=== PATIENT | male | born 1945 | race Caucasian/White ===

== ENCOUNTER 2016-11-10 14:19 | Outpatient (CLI) | payer MEDICARE, OTHER ==
--- NOTE | 2016-11-11 10:35 | XRAY Report ---
THREE-VIEW RIGHT FOOT: 11/10/2016 CLINICAL INDICATION: Sprain, pain. FINDINGS: AP, lateral, oblique views of the right foot demonstrate osteoarthritic changes of the 1st metatarsophalangeal joint and interphalangeal joints. There is no evidence of acute fracture or dis location. No radiopaque foreign body is seen in the soft tissues. IMPRESSION: OSTEOARTHRITIS. JOB #: [id number] EXT JOB #:[id number]
== END 2016-11-10 14:20 | disposition home or self-care (01) ==
LOC: DI.N 14:19
PROVIDERS: ATTEND Internal Medicine
DX: S93.509A Unspecified sprain of unspecified toe(s), initial encounter (principal); M19.071 Primary osteoarthritis, right ankle and foot

== ENCOUNTER 2016-12-08 09:24 | Outpatient (CLI) | payer MEDICARE, OTHER ==
--- NOTE | 2016-12-08 13:48 | XRAY Report ---
THREE-VIEW RIGHT FOOT: 12/08/2016 CLINICAL INDICATION: Persistent pain. FINDINGS: AP, lateral, oblique views of the right foot are compared to previous films of 11/10/2016. Better seen on today's oblique view is a fracture of the proximal phalanx of the 5th toe, minimally displaced, with some callus formation on the current examination. Osteoarthritic changes are stable . No radiopaque foreign body is seen in the soft tissues. IMPRESSION: HEALING FRACTURE AT THE PROXIMAL PHALANX OF THE 5TH TOE, BETTER SEEN ON TODAY'S OBLIQUE PROJECTION. JOB #: [id number] EXT JOB #:[id number]
== END 2016-12-08 09:25 | disposition home or self-care (01) ==
LOC: DI 09:24
PROVIDERS: ATTEND Podiatrist
DX: S92.511D Displaced fracture of proximal phalanx of right lesser toe(s), subsequent encounter for fracture with routine healing (principal)

== ENCOUNTER 2017-05-11 09:32 | Outpatient (CLI) | payer MEDICARE, OTHER ==
--- NOTE | 2017-05-12 19:06 | XRAY Report ---
DATE OF SERVICE: 05/11/2017 THREE VIEW LEFT FOOT: 05/11/2017 CLINICAL INDICATION: Pain at the sesamoid bones. FINDINGS: AP, lateral, oblique views of the left foot demonstrate no evidence of acute fracture or dislocation. The joint spaces are preserved. The medial of the two sesamoids at the first metatarsophalangeal joint is bipartite. IMPRESSION: No evidence of acute fracture. Bipartite medial sesamoid bone at the first metatarsopha langeal joint. TD: 05/11/2017 20:17
== END 2017-05-11 09:33 | disposition home or self-care (01) ==
LOC: DI 09:32
PROVIDERS: ATTEND Podiatrist
DX: M79.672 Pain in left foot (principal)

== ENCOUNTER 2017-05-20 14:35 | Outpatient (CLI) | payer MEDICARE, OTHER ==
--- NOTE | 2017-05-20 17:50 | MRI Preliminary Report ---
Exam: MRI FOOT LT W/O IMPRESSION: 1. A 2.5 cm lobulated focus of fluid in the deep soft tissues at the plantar medial aspect first meta tarsal-phalangeal joint. Possible subtle ulceration at the lateral margin of the site. Findings nayely rning for abscess provided the clinical history of open wound. Interstitial bursitis also in the diff erential. 2. Subtle edema in the medial sesamoid. A component of this may be due to bipartite sesamoid and micr omotion. Overlying fluid collection raises concern for possible early osteomyelitis. 3. No evidence of osteomyelitis at the first metatarsal head or proximal phalanx. [facility] MUSCULOSKELET[facility] RADIOLOGY SECTION SITE ID: [id number]
--- NOTE | 2017-05-20 18:08 | MRI Report ---
EXAM: LEFT MIDFOOT MRI WITHOUT CONTRAST EXAM DATE: 05/20/2017 04:07 PM. CLINICAL HISTORY: Acute pain over sesamoids. Open wound. COMPARISON: Radiographs 05/11/2017. TECHNIQUE: Multiplanar, multisequence T1-weighted and fluid-sensitive sequences of the midfoot withou t contrast. Other: None. FINDINGS: Evaluation of the digits limited due to field of view. Distal aspects of the first through third digits not included in the [id number]. Bones: No fracture or bone lesion. Bipartite medial sesamoid present. Subtle bone marrow edema in the ossific fragments. Joints: Hammertoe deformities of the first through fifth digits with hyperextension at the level of t he metatarsophalangeal joints. Minimal joint effusion at the first metatarsophalangeal joint. Ligaments: The visualized intertarsal, intermetatarsal, and tarsometatarsal ligaments are intact. Thi s includes the Lisfranc ligament. The visualized collateral ligaments are intact. Tendons: The flexor and extensor tendons are unremarkable. Musculature: Mild fatty atrophy throughout the musculature. Minimal edema throughout the musculature. This may be neurogenic. Other: The visualized portion of the tarsal tunnel is unremarkable. Minimal bursitis at the first, s econd, and third metatarsal interspaces. Mild subcutaneous edema at the dorsal and plantar aspects of the metatarsophalangeal joints. A lobula gladis focus of fluid present in the deep subcutaneous soft tissues at the plantar medial aspect first m etatarsophalangeal joint measuring 0.6 x 1.8 x 2.5 cm, dorsal to plantar by transverse by longitudina l (short axis images 9 and sagittal images 26). Possible subtle shallow soft tissue ulceration just m edial to this site (short axis images 7). IMPRESSION: 1. A 2.5 cm lobulated focus of fluid in the deep soft tissues at the plantar medial aspect first meta tarsophalangeal joint. Possible subtle ulceration at the lateral margin of the site. Findings concern ing for abscess provided the clinical history of open wound. Interstitial bursitis also in the differ ential. 2. Subtle edema in the medial sesamoid. A component of this may be due to bipartite sesamoid and micr omotion. Overlying fluid collection raises concern for possible early osteomyelitis. 3. No evidence of osteomyelitis at the first metatarsal head or proximal phalanx. [facility] MUSCULOSKELET[facility]IOLOGY SECTION Referring Provider Line: [phone] SITE ID: [id number]
== END 2017-05-20 14:36 | disposition home or self-care (01) ==
LOC: DI 14:35
PROVIDERS: ATTEND Podiatrist
DX: M79.672 Pain in left foot (principal)

== ENCOUNTER 2018-10-25 17:52 | Outpatient (CLI) | payer MEDICARE, OTHER | END 2018-10-25 17:53 | disposition home or self-care (01) | LOC: EMS 17:52 | PROVIDERS: ATTEND Surgery | DX: R47.9 Unspecified speech disturbances (principal); R20.2 Paresthesia of skin; R53.1 Weakness | CPT/HCPCS: A0425; A0429 ==

== ENCOUNTER 2018-10-25 18:21 | Emergency (ER) | payer MEDICARE, OTHER ==
--- NOTE | 2018-10-25 19:14 | CT Report ---
Reason: R arm and face weakness, likely TIA Procedure Date: 10/25/2018 Accession Number: [id number] / [id number] Procedure: CT - HEAD WO CPT Code: FULL RESULT: EXAM: CT HEAD EXAM DATE: 10/25/2018 07:00 PM. CLINICAL HISTORY: R arm and face weakness, likely TIA. COMPARISON: None. TECHNIQUE: Multiaxial CT images were obtained from the foramen magnum to the vertex. Reformats: Sagittal and coronal. IV contrast: None. In accordance with CT protocol optimization, one or more of the following dose reduction techniques were utilized for this exam: automated exposure control, adjustment of mA and/or KV based on patient size, or use of iterative reconstructive technique. FINDINGS: Parenchyma: No intraparenchymal hemorrhage. No evidence of mass, midline shift, or CT findings of infarction. Echevarria-white differentiation is distinct. Extraaxial Spaces: Normal for age. No subdural or epidural collections identified. Ventricles: Normal in size and position. Sinuses and Orbits: Imaged paranasal sinuses, orbits, and mastoids show no significant abnormality. Bones: No evidence of fracture or calvarial defect. Other: None. IMPRESSION: No acute intracranial abnormality. [facility]
--- NOTE | 2018-10-25 19:34 | ED Physician Documentation ---
PD HPI FOCAL NEURO - Stated complaint Stated Complaint: RIGHT SIDE NUMBNESS, SPEECH PROBLEMS - Chief complaint Chief Complaint: Neuro - History obtained from History obtained from: Patient, Family - History of Present Illness Timing - onset: Other (just prior to arrival had right hand/arm and facial numbness and difficulty speaking for several minutes that resolved spontaneously after a few minutes - less than 10) Timing - duration: Minutes Timing - details: Abrupt onset Severity of deficit: Moderate Weakness: No: Face, Arm, Hand, Leg, Foot, Right, Left, Other Numbness: Face, Arm, Hand Associated symptoms: Other (difficulty speaking). No: Headache, Nausea / vomiting, Seizure, Syncope, Fall, Head injury, Chest pain, Neck pain, Back pain Contributing factors: positive: Atrial fibrillation. negative: Anticoagulated Baseline status: positive: A&OX3, ambulatory, indep Similar symptoms before: Has not had sx before Recently seen: Not recently seen - Treatment prior to arrival Treatment prior to arrival: none. Symptoms resolved on their own Review of Systems Ten Systems: 10 systems reviewed and negative Constitutional: denies: Fever, Chills Eyes: denies: Loss of vision, Decreased vision, Photophobia Cardiac: reports: Reviewed and negative Respiratory: reports: Reviewed and negative Skin: reports: Reviewed and negative Musculoskeletal: reports: Reviewed and negative Neurologic: reports: Numbness PD PAST MEDICAL HISTORY - Past Medical History Past Medical History: Yes Cardiovascular: Hypertension, Atrial fibrillation Other Past Medical History: denies other - Past Surgical History Past Surgical History: No - Present Medications Home Medications: Ambulatory Orders Medication Instructions Recorded Confirmed Apixaban [Eliquis] 5 mg PO BID #14 tablet 10/25/18 - Allergies Allergies/Adverse Reactions: Allergies Allergy/AdvReac Type Severity Reaction Status Date / Time cephalexin AdvReac Unknown Verified 10/25/18 18:36 codeine AdvReac Unknown Verified 10/25/18 18:36 - Social History Does the pt smoke?: No Smoking Status: Never smoker Does the pt drink ETOH?: No Does the pt have substance abuse?: No - Immunizations Immunizations are current?: Yes PD ED PE NORMAL - Vitals Vital signs reviewed: Yes - General General: Alert and oriented X 3, No acute distress, Well developed/nourished - HEENT HEENT: Atraumatic, PERRL, Pharynx benign - Neck Neck: Supple, no meningeal sign, No JVD - Cardiac Cardiac: No murmur, No gallop, No rub, Strong equal pulses, Other (irregularly irregular ) - Respiratory Respiratory: No respiratory distress - Abdomen Abdomen: Soft, Non tender, Non distended - Male Male : Deferred - Rectal Rectal: Deferred - Derm Derm: Normal color, Warm and dry, No rash - Extremities Extremities: No deformity, No edema - Neuro Neuro: Alert and oriented X 3, electrical intern 2-12 intact, No motor deficit, No sensory deficit, Normal speech, Other (normal gait, no pronator drift, normal cerebellar testing ) Eye Opening: Spontaneous Motor: Obeys Commands Verbal: Oriented GCS Score: 15 - Psych Psych: Normal mood, Normal affect NIHSS - Level of Consciousness Level of consciousness: (0) Alert, Keenly responsive LOC Questions: (0) Answers both Q's correct LOC Commands: (0) Performs both correctly - Gaze Best Gaze: (0) Normal - Visual Visual: (0) No loss - Facial Palsy Facial Palsy: (0) Normal, symmetrical movement - Motor Arms (both separate) Motor Arm (right): (0) No drift Motor Arm (left): (0) No drift - Motor Legs (both separate) Motor Leg (right): (0) No drift Motor Leg (left): (0) No drift - Limb Ataxia Limb Ataxia: (0) Absent - Sensory Sensory: (0) Normal - Best Language Best Language: (0) No aphasia - Dysarthria Dysarthria: (0) Normal - Extinction and Inattention (formally neg Extinction and inattention: (0) No abnormality - Total Score/Results Total Score/Result: 0 Results - Vitals Vitals: Oxygen O2 Source Room air - EKG (time done) No standard instances Rhythm: Atrial fibrillation (rate controlled ) [place]: Normal Intervals: QRS normal QRS: Normal Ischemia: Normal ST segments Computer interpretation: Agree with computer - Rads (name of study) No standard instances Radiology: Final report received (negative head CT) PD MEDICAL DECISION MAKING - ED course Complexity details: reviewed results, re-evaluated patient, considered differential, d/w patient, d/w family ED course: ddx - stroke, ICH, TIA, complicated migraine. 73 y/o M with hx of afib with stroke like symptoms that resolved prior to arrival. Neg head CT Pt has rate controlled afib not currently on a blood thinner. Advised starting NOAC given risk of stroke. Will initiate anticoagulant and discussed plan of care and further eval iwth his PCP who will f/u in clinic this week. Advised to return to ED immediately if any new or concerning symptoms. Departure - Departure Disposition: 01 Home, Self Care Clinical Impression: TIA (transient ischemic attack) Condition: Stable Record reviewed to determine appropriate education?: Yes Instructions: TIA Follow-Up: Cash Retana MD [Primary Care Provider] - Tomorrow Prescriptions: Apixaban [Eliquis] 5 mg PO BID #14 tablet Comments: Your CT scan here today was normal. You likely had a TIA which is a stroke that resolves without intervention within 24 hours. You do have Afib which increases the likelihood of stroke and recurrence. You therefore should be on a blood thinner to prevent recurrence. I wrote you for Eliquis which is an oral anticoagulant to prevent stroke in people with Afib. It does come with a risk of bleeding. So if you have a significant head injury or traumatic injury you could have bleeding. It can also cause GI bleeding but it is likely worth these small risks compared to the risk of a stroke. Follow up with your doctor tomorrow- Dr. Lazaro's office is aware of your TIA today and will help you obtain further testing and follow up to help prevent stroke. Discharge Date/Time: 10/25/18 20:01
[2018-10-25] MEDS ORDERED: APIXABAN 5 MG TABLET PO STA (19:39)
[2018-10-25 20:02] VITALS: BP 141/98
== END 2018-10-25 20:01 | disposition home or self-care (01) ==
LOC: EDUNIT# → ED 18:21
DX: G45.9 Transient cerebral ischemic attack, unspecified (principal); R40.2412 Glasgow coma scale score 13-15, at arrival to emergency department; I48.91 Unspecified atrial fibrillation; I10 Essential (primary) hypertension
CPT/HCPCS: 70450; 93005; 99284; 99285; A9270

== ENCOUNTER 2021-04-10 17:22 | Emergency (ER) | payer MEDICARE, OTHER ==
[2021-04-10 17:27] VITALS: BP 137/60
--- NOTE | 2021-04-10 17:52 | ED Physician Documentation ---
PD HPI UPPER EXT INJURY - Stated complaint Stated Complaint: left finger lac - Chief complaint Chief Complaint: Laceration - History obtained from History obtained from: Patient - History of Present Illness Location: Left, Finger Type of injury: Laceration Where injury occurred: Home Timing - onset: Today Timing - duration: Hours (1) Timing - details: Abrupt onset Pain level max: 3 Pain level now: 3 Improved by: Rest Worsened by: Moving, Palpating Associated symptoms: No: Weakness, Numbness, Tingling, Swelling Contributing factors: No: Anticoagulated Recently seen: Not recently seen - Additonal information Additional information: Patient was cutting turkey today when he accidentally lacerated the dorsal aspect of the left index finger, mid phalanx. Tetanus up-to-date. Review of Systems Constitutional: denies: Fever PD PAST MEDICAL HISTORY - Past Medical History Cardiovascular: Hypertension, Atrial fibrillation - Past Surgical History Past Surgical History: No - Present Medications Home Medications: Ambulatory Orders Medication Instructions Recorded Confirmed Apixaban [Eliquis] 5 mg PO BID #14 tablet 10/25/18 - Allergies Allergies/Adverse Reactions: Allergies Allergy/AdvReac Type Severity Reaction Status Date / Time cephalexin AdvReac Unknown Verified 04/10/21 17:26 codeine AdvReac Unknown Verified 04/10/21 17:26 - Social History Does the pt smoke?: No Smoking Status: Never smoker Does the pt drink ETOH?: No Does the pt have substance abuse?: No - Immunizations Immunizations are current?: Yes PD ED PE NORMAL - Vitals Vital signs reviewed: Yes - General General: Alert and oriented X 3, No acute distress - Derm Derm: Warm and dry - Neuro Neuro: Alert and oriented X 3 PD ED PE EXPANDED - Extremities RUSSELL UE/Hands Visual: 1 - laceration (1 cm, linear, subcutaneous. Neurovascular intact. Tendons intact, tested against resistance.) Results - Vitals Vitals: Vital Signs - 24 hr 04/10/21 17:26 Temperature 36.5 C Heart Rate 88 Respiratory 16 Rate Blood Pressure 137/60 H O2 Saturation 98 Oxygen O2 Source Oxymask Procedures - Laceration (location) L index finger Length in cm: 1 Wound type: Linear, Superficial, Clean Neurovascular status: Sensory intact, Motor intact, Vascular intact Tendon involvement: Tendon intact Wound preparation: Irrigated copiously NS Skin layer closure: Dermabond (T ring closure) Other: Patient tolerated well, No complications, Neurovascular intact, Dressing applied, Tetanus UTD PD MEDICAL DECISION MAKING - ED course Complexity details: considered differential, d/w patient ED course: 75-year-old male with a left index finger laceration. Repaired with the T ring closure system and Dermabond. Warnings of infection and instructions on wound care given at bedside. Also counseled on how to minimize scarring. Patient counseled regarding signs and symptoms for which I believe and urgent re- evaluation would be necessary. Patient with good understanding of and agreement to plan and is comfortable going home at this time This document was made in part using voice recognition software. While efforts are made to proofread this document, sound alike and grammatical errors may occur. Departure - Departure Disposition: 01 Home, Self Care Clinical Impression: Laceration of left index finger Qualifiers: Encounter type: initial encounter Damage to nail status: without damage Foreign body presence: without foreign body Qualified Code(s): S61.211A - Laceration without foreign body of left index finger without damage to nail, initial encounter Condition: Good Instructions: ED Laceration Hand Follow-Up: JACKIE SANON ARNP [Primary Care Provider] - Comments: Keep the wound clean. Follow up with your doctor as needed. Return if you notice redness, swelling or drainage from the wound. The bandage will fall off on its own in a few days. Discharge Date/Time: 04/10/21 18:12
== END 2021-04-10 18:12 | disposition home or self-care (01) ==
LOC: ED 17:22
DX: S61.211A Laceration without foreign body of left index finger without damage to nail, initial encounter (principal); W26.0XXA Contact with knife, initial encounter; Y93.G1 Activity, food preparation and clean up; Y92.009 Unspecified place in unspecified non-institutional (private) residence as the place of occurrence of the external cause
CPT/HCPCS: 12001; 99282

== ENCOUNTER 2022-03-03 10:00 | Emergency (ER) | payer MEDICARE, OTHER ==
[2022-03-03 10:29] LABS: BASOPHILS % (AUTO) 0.8 %; EOSINOPHILS # (AUTO) 0.1 10^3/uL (0.0-0.7); EOSINOPHILS % (AUTO) 2.6 %; HCT - HEMATOCRIT 49.9 % (42.0-52.0); HGB - HEMOGLOBIN 15.8 g/dL (14.0-18.0); LYMPHOCYTES # (AUTO) 1.4 10^3/uL (1.5-3.5); LYMPHOCYTES % (AUTO) 27.2 %; MEAN CORPUSCULAR HGB CONC 31.7 g/dL (32.0-36.0); MEAN CORPUSCULAR VOLUME 97.8 fL (80.0-94.0); MEAN PLATELET VOLUME 9.4 fL (7.4-11.4); MONOCYTES # (AUTO) 0.6 10^3/uL (0.0-1.0); MONOCYTES % (AUTO) 12.1 %; NEUTROPHILS % (AUTO) 57.1 %; PLT - PLATELET COUNT 205 10^3/uL (130-450); RED CELL DISTRIBUTION WIDTH 12.2 % (12.0-15.0); WHITE BLOOD COUNT 5.3 x10^3/uL (4.8-10.8)
--- NOTE | 2022-03-03 10:29 | XRAY Report ---
PROCEDURE: Chest 1 View X-Ray INDICATIONS: Chest pain/ Pt states AFIB issues today, Priors: none TECHNIQUE: One view of the chest was acquired. COMPARISON: None FINDINGS: Surgical changes and devices: Pacemaker. Lungs and pleura: No pleural effusions or pneumothorax. Lungs are clear. Mediastinum: Mediastinal contours appear normal. Heart size is normal. Bones and chest wall: No suspicious bony lesions. Overlying soft tissues appear unremarkable. IMPRESSION: No acute pulmonary process. Reviewed by: Tabby Fortune MD on 03/03/2022 10:27 AM PDT Approved by: Tabby Fortune MD on 03/03/2022 10:27 AM PDT Station ID: [id number]
--- NOTE | 2022-03-03 11:01 | ED Physician Documentation ---
PD HPI SYNCOPE - Stated complaint Stated Complaint: HIGH HEART RATE/SENT BY CLINIC - Chief complaint Chief Complaint: Cardiac - History obtained from History obtained from: Patient - History of Present Illness Witnessed: Witnessed Timing - onset: How many hours ago (2-3), Today Preceding symptoms: Palpitations Associated symptoms: Palpitations (he was playing golf and abruptly felt some lightheaded but no syncope per se. He looked at his watch which shows heart rate and it was at 130-140. H/O similar with atrial fib in the past, but only 1 short few minute episode since ablation 1 1/2 years ago. On Metoprolol 25 mg bid.). No: Dyspnea Contributing factors: No: Recent med change, Decreased PO intake Similar symptoms before: Diagnosis (atrial fib in the past but had ablation 1 1/2 years ago with good improvement.) Recently seen: Not recently seen Review of Systems Constitutional: denies: Fever, Chills Nose: denies: Rhinorrhea / runny nose, Congestion Throat: denies: Sore throat Cardiac: reports: Palpitations. denies: Chest pain / pressure, Pedal edema, Calf pain Respiratory: denies: Dyspnea, Cough Musculoskeletal: denies: Neck pain, Back pain Neurologic: reports: Generalized weakness. denies: Syncope, Altered mental status, Headache PD PAST MEDICAL HISTORY - Past Medical History Past Medical History: Yes Cardiovascular: Hypertension, High cholesterol, Atrial fibrillation Respiratory: Sleep apnea Neuro: TIA Endocrine/Autoimmune: None GI: None : None HEENT: None Psych: None Musculoskeletal: None Derm: None - Past Surgical History Past Surgical History: Yes Ortho: Rotator cuff repair, Arthroscopic surgery, Other Cardiovascular: Pacemaker - Present Medications Home Medications: Ambulatory Orders Medication Instructions Recorded Confirmed Apixaban [Eliquis] 5 mg PO BID #14 tablet 10/25/18 03/03/22 Calcium Carb (Oyster Shell) 1,000 mg PO DAILY 03/03/22 03/03/22 [Oysco-500] Ezetimibe [Zetia] 10 mg ORAL DAILY 03/03/22 03/03/22 Lutein 25 mg PO DAILY 03/03/22 03/03/22 Magnesium Oxide [Magnesium] 500 mg PO DAILY 03/03/22 03/03/22 Metoprolol Succinate [Toprol Xl] 25 mg PO BID 03/03/22 03/03/22 Red Yeast Rice 60 mg ORAL DAILY 03/03/22 03/03/22 Zeaxanthn 5 mg ORAL DAILY 03/03/22 03/03/22 Zinc Gluconate [Zinc] 15 mg PO DAILY 03/03/22 03/03/22 - Allergies Allergies/Adverse Reactions: Allergies Allergy/AdvReac Type Severity Reaction Status Date / Time cephalexin AdvReac Unknown Verified 04/10/21 17:26 codeine AdvReac Unknown Verified 04/10/21 17:26 - Living Situation Living Situation: reports: With spouse/s.o. Living Arrangement: reports: At home - Social History Does the pt smoke?: No Smoking Status: Former smoker Does the pt drink ETOH?: No Does the pt have substance abuse?: Yes Substance Use and Type: CBD oil / Products - Immunizations Immunizations are current?: Yes PD ED PE NORMAL - Vitals Vital signs reviewed: Yes - General General: Alert and oriented X 3, No acute distress, Well developed/nourished - Neck Neck: Supple, no meningeal sign, No adenopathy, No JVD - Cardiac Cardiac: No murmur. No: RRR (tachycardic at 130s with slight irregularlity. ) - Respiratory Respiratory: Clear bilaterally, Other (pacer noted left chest wall. ) - Abdomen Abdomen: Soft, Non tender - Derm Derm: Normal color, Warm and dry - Extremities Extremities: No edema, No calf tenderness / cord - Neuro Neuro: Alert and oriented X 3, No motor deficit, No sensory deficit, Normal speech Results - Vitals Vitals: Vital Signs - 24 hr 03/03/22 03/03/22 03/03/22 10:09 10:58 11:24 Temperature 37.0 C Heart Rate 129 H 123 H 106 H Respiratory 18 19 14 Rate Blood Pressure 143/99 H 114/95 H 116/88 H O2 Saturation 99 99 98 03/03/22 03/03/22 03/03/22 11:49 12:17 12:30 Temperature Heart Rate 123 H 82 76 Respiratory 17 17 16 Rate Blood Pressure 114/88 H 122/80 112/80 O2 Saturation 98 99 100 03/03/22 03/03/22 03/03/22 13:00 13:30 13:55 Temperature 36.8 C Heart Rate 68 68 67 Respiratory 14 14 18 Rate Blood Pressure 115/72 118/74 111/72 O2 Saturation 98 98 98 Oxygen O2 Source Room air - EKG (time done) 10:07 Rate: Rate (enter#) (128) Rhythm: Paced (with ventricular capture. some variability of R-R interval. ) Intervals: Wide QRS Ischemia: Non specific changes 13:28 Rate: Rate (enter#) (60) Rhythm: NSR, Paced [place]: Normal Intervals: Normal OK Ischemia: Normal ST segments. No: ST elevation c/w ischemia, ST depression Compare to prior EKG: Changed from prior EKG (now in sinus/atrial rhythm with rate control. ) - Labs Labs: Laboratory Tests 03/03/22 03/03/22 03/03/22 10:24 10:24 10:24 WBC 5.3 RBC 5.10 Hgb 15.8 Hct 49.9 MCV 97.8 H MCH 31.0 MCHC 31.7 L RDW 12.2 Plt Count 205 MPV 9.4 Neut # (Auto) 3.0 Lymph # (Auto) 1.4 L [place] # (Auto) 0.6 Eos # (Auto) 0.1 Baso # (Auto) 0.0 Absolute Nucleated RBC 0.00 Nucleated RBC % 0.0 Sodium 139 Potassium 4.7 Chloride 104 Carbon Dioxide 28 Anion Gap 7.0 BUN 24 H Creatinine 1.1 Estimated GFR (MDRD) 65 L Glucose 106 H Calcium 10.0 Magnesium Total Bilirubin 1.0 AST 30 ALT 26 Alkaline Phosphatase 75 Troponin I High Sens 9.2 Total Protein 7.8 Albumin 4.4 Globulin 3.4 Albumin/Globulin Ratio 1.3 Lipase 31 03/03/22 10:24 WBC RBC Hgb Hct MCV MCH MCHC RDW Plt Count MPV Neut # (Auto) Lymph # (Auto) [place] # (Auto) Eos # (Auto) Baso # (Auto) Absolute Nucleated RBC Nucleated RBC % Sodium Potassium Chloride Carbon Dioxide Anion Gap BUN Creatinine Estimated GFR (MDRD) Glucose Calcium Magnesium 2.3 Total Bilirubin AST ALT Alkaline Phosphatase Troponin I High Sens Total Protein Albumin Globulin Albumin/Globulin Ratio Lipase - Rads (name of study) chest xray Radiology: Prelim report reviewed (no acute process), See rad report PD MEDICAL DECISION MAKING - ED course Complexity details: reviewed results, re-evaluated patient (patient given dose of diltiazem and rate slowed and then converted to NSR with p waves and narrower complexes c/w atrial NSR.), considered differential (initial ECG c/w ventricular response to likely atrial fib, with some irregularity of R-R and rate. So ventricular lead sensing the atrial fib and responding appropriately. Will work at rate control and see if converts. ), d/w patient, d/w business system consultant (talked with Dr. Echols, display fabrication supervisor Cardiology, who suggested leaving patient at current metoprolol dosing unless more episodes and to follow up with his usual Stock Wetter. ) Departure - Departure Disposition: 01 Home, Self Care Clinical Impression: Paroxysmal atrial fibrillation, Light-headed feeling Condition: Stable Record reviewed to determine appropriate education?: Yes Follow-Up: JACKIE SANON ARNP [Primary Care Provider] - Alfred Ness MD [Physician No Access] - Comments: I talked with the roading engineer on-call for Dr. Ness who suggested just leaving your current medications as is with the metoprolol 25 mg twice daily. Be sure to stay well-hydrated. Minimal caffeine. Follow-up with the cardiology office. Return if you have recurring episodes lasting more than 10 to 20 minutes or associated with chest pain lightheadedness etc. Discharge Date/Time: 03/03/22 14:17
[2022-03-03 11:02] LABS: ALBUMIN 4.4 g/dL (3.2-5.5); ALBUMIN/GLOBULIN RATIO 1.3 (1.0-2.2); CREATININE 1.1 mg/dL (0.6-1.2); POTASSIUM 4.7 mmol/L (3.5-5.0); TOTAL PROTEIN 7.8 g/dL (6.7-8.2)
[2022-03-03] MEDS ORDERED: MAGNESIUM SULFATE 2 GRAM 2 GM/50 ML BAG IV ONE (11:54)
[2022-03-03] MEDS ORDERED: METOPROLOL 5 MG/5 ML VIAL IVP STA (11:54)
[2022-03-03 13:55] VITALS: BP 111/72
== END 2022-03-03 14:17 | disposition home or self-care (01) ==
LOC: ED 10:00
DX: I48.0 Paroxysmal atrial fibrillation (principal); Z79.01 Long term (current) use of anticoagulants; Z87.891 Personal history of nicotine dependence
CPT/HCPCS: 36415; 80053; 83690; 83735; 84484; 85025; 93005; 96365; 96375; 99283